=== PATIENT | female | born 1990 | race Caucasian/White ===

== ENCOUNTER 2021-05-24 20:06 | Emergency (ER) | payer OTHER ==
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
--- NOTE | 2021-05-25 12:42 | CT ---
[id number] CT/CT Head WO IV EXAM: CT Head WO IV CLINICAL DATA: TRAUMA UNEQUAL PUPILS COMPARISON: No previous similar exam is available for comparison. FINDINGS: There is no mass or mass effect. There is no hemorrhage or hydrocephalus. There are no extra-axial fluid collections. There are no sites of abnormal attenuation. IMPRESSION: NO PLAIN CT EVIDENCE OF ACUTE INTRACRANIAL PROCESS. Joseluis Borden MD 05/25/21 1186 Thank you for allowing us to participate in the care of your patient.
== END 2021-05-24 21:30 | disposition home or self-care (01) ==
LOC: KA.ED 20:06
DX: S16.1XXA Strain of muscle, fascia and tendon at neck level, initial encounter (principal); H57.89 Other specified disorders of eye and adnexa; V89.2XXA Person injured in unspecified motor-vehicle accident, traffic, initial encounter
CPT/HCPCS: 70450; 99283; 99284-25